=== PATIENT | female | born 1950 | race Caucasian/White ===

== ENCOUNTER 2024-03-30 11:45 | Emergency (ER) | payer MEDICARE, SELFPAY ==
[2024-03-30 12:00] VITALS: BP 108/80
[2024-03-30 12:02] VITALS: BMI 22.6
[2024-03-30 12:19] LABS: % Basophils 0.6 % (0-2); % Eosinophils 0.8 % (0-6); % Immature Granulocytes 0.5 % (0-0.5); % Lymphocytes 17.3 % (20.5-51.1); % Monocytes 7.6 % (1.7-9.3); % Neutrophils 73.2 % (42.2-75.2); Absolute Eosinophils 0.1 10^3/uL (0-0.7); Absolute Lymphocytes 1.1 10^3/uL (1.2-3.4); Absolute Monocytes 0.5 10^3/uL (0.1-0.6); Absolute Neutrophils 4.7 10^3/uL (1.4-6.5); Hematocrit 39.5 % (37.0-47.0); Hemoglobin 13.6 g/dL (12.0-16.0); Mean Corp Hgb Conc. 34.4 g/dL (33.0-37.0); Mean Corpuscular Hgb 30.5 pg (27.0-31.0); Mean Corpuscular Volume 88.6 fL (81.0-99.0); Mean Platelet Volume 9.6 fL (7.4-10.4); Nucleated Red Blood Cells % 0 %; Platelet Count 270 10^3/uL (130-400); Red Blood Cell Count 4.46 10^6/uL (4.20-5.40); Red Cell Dist. Width 12.5 % (11.5-14.5); White Blood Cell Count 6.4 10^3/uL (4.8-10.8)
--- NOTE | 2024-03-30 12:19 | ED.GENMED ---
History of Present Illness
General
Chief Complaint: Chest Pain
Source: patient
Exam Limitations: none
Time Seen by Provider: 03/30/24 12:00
Nursing documentation reviewed up to this point in time: agreed with
History of Present Illness
History of Present Illness:
74 yr old female with PMH of reflux presents to the ER for evaluation. Patient ports for the past 4 days she has had intermittent burning across her chest and in her epigastric area. Is worse with laying down. She normally takes omeprazole 20 mg
twice daily has been taking Pepto-Bismol and Tums which has given her my relief. She had pain this morning when she woke up laying down and pain continued throughout the morning. She went to urgent care and was recommended to come to the ED.
Pt denies any associated shortness of breath at this.
Patient reports she moved from [place] and has a family doctor here but has not yet seen a GI specialist. She did have a GI specialist in [place] and last had a endoscopy 5 years ago which showed reflux.
She has no cardiac history.
Denies any shortness of breath, back pain. Denies any recent chill/cough/illness.
Review of Systems
Review of Systems
Allergies reviewed?: Yes
All Other Systems: ROS reviewed and negative except as documented in HPI and ROS
Constitutional: Reports no symptoms; Denies fever, fatigue or chills
EENT: Reports no symptoms
Respiratory: Reports no symptoms
Cardiac: Reports no symptoms
ABD/GI: Reports other (burning to chest )
: Reports no symptoms
Musculoskeletal: Reports no symptoms
Skin: Reports no symptoms
Neurological: Reports no symptoms
Psychiatric: Reports no symptoms
Phy Exam
General Physical Exam
General Presentation: no apparent distress
General age: appears stated age
General Skin: warm and dry
General Habitus: normal
General Mental: alert
General Hydration: appears well hydrated
Cardiovascular Exam
Cardiovascular Exam: regular rate/rhythm, no murmur and normal peripheral pulses
Pulmonary Exam
Pulmonary Exam: lungs clear and no respiratory distress
Gastrointestinal Exam
Gastrointestinal Exam: normal bowel sounds, soft and other (Mild epigastric tenderness no right upper quadrant tenderness)
Neurological Exam
Neurological Exam: alert and oriented x3
Musculoskeletal Exam
Musculoskeletal Exam: full ROM
Skin Exam
Skin Exam: normal color and warm/dry
Psychiatric Exam
Psychiatric Exam: normal mood/affect
Scores
Heart Score for Chest Pain Patients
STEMI patient?: Not applicable
Course
Orders/Labs/Results
Orders:
Orders
03/30/24 11:46
EKG [Electrocardiogram (*1)] Urgent
Reason for Study: Chest Pain
EKG- Treatment ONCE
03/30/24 12:03
Cardiac Monitoring- Treatment ONCE
IV Insert/Care/Rem.- Treatment PRN
CR Chest - 2 Views Urgent
Comment:
Reason For Exam: cp
03/30/24 12:10
Complete Blood Count/With Diff Urgent
Comprehensive Metabolic Panel Urgent
Lipase Urgent
Troponin I Urgent
03/30/24 12:11
Add On- LAB Urgent
Tests Added?: lipase
03/30/24 12:19
Mag Hydrox/Al Hydrox/Simeth [Maalox] 30 ml Phenobarb/Hyoscy/Atropine/Scop [] 10 ml PO NOW
03/30/24 12:22
Mag Hydrox/Al Hydrox/Simeth [Maalox] 30 ml .ROUTE .STK-MED ONE
Phenobarb/Hyoscy/Atropine/Scop [] 10 ml .ROUTE .STK-MED ONE
03/30/24 13:59
Sucralfate Suspension [Carafate Suspension] 1 gm PO NOW STA
03/30/24 14:03
Pantoprazole [Protonix IV] 40 mg IV NOW STA
03/30/24 14:57
Electrocardiogram (*1) Stat
Reason for Study: Other
Other Reason for Exam: chest pain
EKG- Treatment ONCE
03/30/24 15:01
Troponin I Urgent
Abnormal Lab Results
03/30/24
12:10
Absolute Lymphs (auto) 1.1 L 10^3/uL
(1.2-3.4)
Lymphocytes % 17.3 L %
(20.5-51.1)
Glucose 101 H mg/dl
(70-99)
03/30/24 12:10
03/30/24 12:10
Vital Signs
Initial and Last Documented VS:
Initial Vital Signs
Pulse Resp Pulse Ox
63 18 100
03/30/24 11:47 03/30/24 11:47 03/30/24 11:47
Last Documented Vital Signs
Pulse Resp BP Pulse Ox
64 19 123/53 100
03/30/24 15:15 03/30/24 15:15 03/30/24 15:00 03/30/24 11:47
MDM/Problems Addressed
MDM/Problems Addressed:
Patient is a 74-year-old female who has had 4 days of burning across her chest and in her epigastric area. She has a history of reflux and has not been able to follow-up with her GI specialist as she recently moved here from [place] and does
not have a local GI specialist. She is on omeprazole but reports she is under a lot of stress and for the past 4 days this burning has intensified. This does feel like her reflux. It at times does get better with Tums.
She has no cardiac history. She denies any associated shortness of breath. She presented here awake alert no acute distress she was given a GI cocktail which did help with the symptoms recur. She was given Carafate which improved her symptoms and
she has remained asymptomatic since having Carafate. She did also receive Protonix. I did however to be conservative due to sets of enzymes both of which were negative. There are no concerning EKG findings however no previous EKG nonspecific ST
abnormality. SB with Pacs . Chest x-ray with small patchy opacity in the right middle lobe likely representing atelectasis doubtful to represent pneumonia and patient has no clinical complaints or signs of pneumonia. Will DC with GI. I will
prescribe Carafate in addition to change her omeprazole to Protonix. While here I did contact GI front end loader operator and they already contacted patient have an appointment with her May 12. Will also DC with chest pain hotline for nonspecific ST
abnormality with no prior comparison.
*Pulse Oximetry
Patient hypoxic: no
*EKG
Interpreted by ED Provider?: Yes
Heart Rate: 64
Rate: normal
Rhythm: sinus
Ischemia: non-specific ST changes
*Critical Care Note
Total Time (30-74mins, 75-104mins- exclusive of procedures): Not Applicable
ED Attending Note
-
Portions of this chart may have been created with voice recognition software.� Occasional wrong word or��sound alike� substitutions may have occurred due to the inherent limitations of voice recognition software.
Discharge Plan
Departure
Patient Disposition: Home (Routine Discharge)
Date of Disposition: 03/30/24
Time of Disposition: 15:53
Patient with high blood pressure during this ER visit?: No
Condition: Fair
Covid-19: Not Applicable
Discharge Problem:
gerd, Chest pain
Instructions: Acid Reflux and GERD in Adults (DC), Chest Pain CBC Follow Up
Prescriptions:
New
pantoprazole [Protonix] 40 mg tablet,delayed release (DR/EC)
40 mg PO DAILY Qty: 30 0RF
sucralfate [Carafate] 100 mg/mL suspension
10 ml PO QID Qty: 200 0RF
Referrals:
Jordon Joyce MD [Active] -
Estevan Chaparro MD [Active] -
Jerry Rice MD [Family Provider] -
Activity Restrictions/Additional Instructions:
As discussed a new prescription for Protonix was sent to your pharmacy.
stop omeprazole and take Protonix instead.
You may also take Carafate( also sent to pharmacy )
Be sure to watch her diet avoiding all acidic foods, alcohol caffeine.
Sit upright after meals for at least 30 minutes.
Follow-up with GI as scheduled however in addition follow-up with cardiology.
You were placed on chest pain hotline which means you should receive a call from cardiology office however if you do not please give them a call and schedule an appointment.
Return of any worsening of symptoms.
Interventions
Interventions:
*Risk Screen - Suicide Last Done: 03/30/24 11:47
*General Assessment Last Done: 03/30/24 11:47
*Neglect/Abuse Screening Last Done: 03/30/24 11:47
ED- Cardiac Assessment Last Done: 03/30/24 12:02
Discharge Date and Time
Print Language: [place]
[2024-03-30 12:34] LABS: ALT (SGPT) 22 U/L (0-35); AST (SGOT) 25 U/L (14-36); Albumin 4.7 g/dl (3.5-5.0); Alkaline Phosphatase 87 U/L (38-126); Blood Urea Nitrogen 14 mg/dl (7-17); Carbon Dioxide 27 mmol/L (22-30); Chloride 102 mmol/L (98-107); Estimated Creatinine Clearance -21 ml/min; Glucose 101 mg/dl (70-99); Lipase 135 U/L (23-300); Potassium 4.2 mmol/L (3.5-5.1); Sodium 138 mmol/L (135-145); Total Protein 7.3 g/dl (6.3-8.2); eGFR > 60.00
[2024-03-30] MEDS: MAALOX 40 PO (12:41)
[2024-03-30 12:43] VITALS: BP 124/63
[2024-03-30 12:44] LABS: Troponin I < 0.012 ng/ml
[2024-03-30 13:05] VITALS: BP 125/57
[2024-03-30 14:00] VITALS: BP 114/81
[2024-03-30] MEDS: CARAFATE SUSPENSION 1 GM PO (14:13)
[2024-03-30] MEDS: PROTONIX IV 40 MG IV (14:13)
[2024-03-30 15:00] VITALS: BP 123/53
[2024-03-30 15:42] LABS: Troponin I < 0.012 ng/ml
== END 2024-03-30 16:03 | disposition home or self-care (01) ==
LOC: EMR 11:45
PROVIDERS: Nurse Practitioner; EMERGENCY PHYSICIAN Emergency Medicine; FAMILY PHYSICIAN Family Medicine
DX: R07.9 Chest pain, unspecified (principal); R12 Heartburn; K21.9 Gastro-esophageal reflux disease without esophagitis; Z88.6 Allergy status to analgesic agent; Z88.5 Allergy status to narcotic agent
CPT/HCPCS: 99284; 96374; 71046; 80053; 83690; 84484; 85025; 93005